=== PATIENT | male | born 1980 | race Caucasian/White ===

== ENCOUNTER 2019-09-02 00:54 | Emergency (ER) | payer MEDICAID ==
[~2019-09-02] VITALS: Ht 185.4 cm; Wt 109.8 kg
[2019-09-02 00:57] VITALS: BP 141/80
[2019-09-02] MEDS ORDERED: SILVER SULFADIAZINE CREAM 25 GM TUBE TP ONE (01:00)
[2019-09-02] MEDS ORDERED: SILVER SULFADIAZINE CREAM 25 GM TUBE ONE (01:03)
[2019-09-02] MEDS ORDERED: HYDROCODONE/APAP 5/325MG 1 EACH TABLET ONE (01:06)
[2019-09-02] MEDS ORDERED: HYDROCODONE/APAP 5/325MG 1 EACH TABLET PO ONE (01:30)
== END 2019-09-02 01:12 | disposition home or self-care (01) ==
LOC: ER 01:00
DX: T23.202A Burn of second degree of left hand, unspecified site, initial encounter (principal); I10 Essential (primary) hypertension; X11.8XXA Contact with other hot tap-water, initial encounter; Y93.89 Activity, other specified; Y92.89 Other specified places as the place of occurrence of the external cause; Y99.8 Other external cause status